=== PATIENT | female | born 1995 | race African-American/Black ===

== ENCOUNTER 2017-12-26 17:37 | Emergency (ER) | payer OTHER ==
[~2017-12-26] VITALS: Ht 172.7 cm; Wt 99.7 kg
[2017-12-26 17:39] VITALS: TEMP 36.7; Ht 172.7 cm; Wt 99.7 kg
[2017-12-26] MEDS ORDERED: ACETAMINOPHEN 500 MG TAB PO STA (17:54)
[2017-12-26] MEDS ORDERED: KETOROLAC TROMETHAMINE 30 MG/ML VIAL IV STA (17:54)
[2017-12-26] MEDS ORDERED: DEXAMETHASONE SOD INJ 4 MG/ML VIAL IV ONE (18:00)
[2017-12-26] MEDS ORDERED: SODIUM CHLORIDE 0.9% 1000ML 1,000 ML IV ONE ×2 (18:00)
[2017-12-26] MEDS ORDERED: CLR10 PO (18:05)
[2017-12-26] MEDS ORDERED: MULT-506 PO (18:05)
[2017-12-26 18:13] LABS: BASO % 0.2 %; BASO ABS # 0.02 K/uL (0-0.2); EOS % 0.2 %; EOS ABS # 0.02 K/uL (0-0.5); HEMATOCRIT 35.1 % (37-47); HEMOGLOBIN 12.3 g/dL (12.0-16.0); IG# 0.03 K/uL (0.00-0.02); LYMPH % 16.5 %; LYMPH ABS # 1.36 K/uL (1.2-3.4); MEAN CELL VOLUME 79.8 fL (80-100); MEAN PLATELET VOLUME 9.9 fL (7.4-10.4); MONO % 7.2 %; MONO ABS # 0.59 K/uL (0.11-0.59); NEUT % 75.5 %; NEUT ABS # 6.22 K/uL (1.4-6.5); PLATELET COUNT 245 K/uL (130-400); RED CELL DISTRIBUTION WIDTH SD 44.4 fL (36.4-46.3); WHITE BLOOD COUNT 8.24 K/uL (4.8-10.8)
[2017-12-26 18:32] LABS: ALBUMIN 4.3 gm/dl (3.4-5.0); CALCIUM 8.8 mg/dl (8.5-10.1); CREATININE 0.83 mg/dl (0.60-1.20); POTASSIUM 3.5 mmol/L (3.5-5.1)
[2017-12-26 18:34] LABS: TOTAL PROTEIN 7.7 gm/dl (6.4-8.2)
[2017-12-26] MEDS ORDERED: CLINDAMYCIN IV 900 MG in DEXTROSE 5% 100ML 100 ML IV ONE (18:45)
--- NOTE | 2017-12-26 18:46 | EMERGENCY ROOM VISIT NOTE ---
History First contact with patient: 18:35 Chief Complaint: THROAT PAIN/INJURY Stated Complaint: SWOLLEN TONSILS, SORE THROATG History of Present Illness The patient is a 22 year old female who presents to the Emergency Room with complaints of severe sore throat for the last 3 days. The patient is having a very difficult time swallowing. She denies any fever or chills. No other symptoms such as headache, sinus congestion or cough. The patient saw [facility] [address]. A strep test was performed and negative. She was not prescribed any medications. Review of Systems 10 system review performed and negative unless noted in HPI or below Past Medical/Surgical History Sickle cell trait Social History Smoking Status: Never Smoker Occupation Status: [employer] student Current/Historical Medications Scheduled Clindamycin Hcl (Cleocin), 300 MG PO QID Multivitamin (Multivitamin), 1 TAB PO DAILY Prednisolone (Prednisolone), 15 ML PO DAILY Scheduled PRN Loratadine (Claritin), 10 MG PO DAILY PRN for Seasonal Allergies Physical Exam Vital Signs Date Time Temp Pulse Resp B/P (MAP) Pulse Ox O2 Delivery O2 Flow Rate FiO2 12/26/17 19:44 98 16 104/64 98 Room Air 12/26/17 18:42 81 18 121/61 100 Room Air 12/26/17 17:48 Room Air 12/26/17 17:39 36.7 99 20 125/64 95 Room Air Physical Exam VITALS: Vitals are noted on the nurse's note and reviewed by myself. Vital signs stable. GENERAL: 22-year-old female, uncomfortable in appearance, mildly acutely ill, i SKIN: The skin was without rashes, erythema, edema, or bruising. HEAD: Normocephalic atraumatic. EYES: Conjunctivae without injection, sclerae without icterus. Extraocular movements intact. MOUTH: Mucous membranes slightly dry. Tonsils are significantly enlarged, erythematous with exudate bilaterally.. Uvula midline. Airway patent. No swelling of the soft palate. No trismus. No hot potato voice. Tongue does not deviate. NECK: Supple without nuchal rigidity. Lymphadenopathy in anterior cervical chain bilaterally. Cervical spine is nontender. No JVD. HEART: Regular rate and rhythm without murmurs gallops or rubs. LUNGS: Clear to auscultation bilaterally without wheezes, rales or rhonchi. No accessory muscle use. ABDOMEN: Positive bowel sounds x 4.Soft, nontender, without organomegaly. No guarding or rebound tenderness. MUSCULOSKELETAL: No muscle atrophy, erythema, or edema noted. Strength 5/5 throughout. NEURO: Patient was alert and oriented to person place and time. Normal sensation to touch. No focal neurological deficits. Medical Decision & Procedures Laboratory Results 12/26/17 17:56 Red Blood Count 4.40, Mean Corpuscular Volume 79.8, Mean Corpuscular Hemoglobin 28.0, Mean Corpuscular Hemoglobin Concent 35.0, Mean Platelet Volume 9.9, Neutrophils (%) (Auto) 75.5, Lymphocytes (%) (Auto) 16.5, Monocytes (%) (Auto) 7.2, Eosinophils (%) (Auto) 0.2, Basophils (%) (Auto) 0.2, Neutrophils # (Auto) 6.22, Lymphocytes # (Auto) 1.36, Monocytes # (Auto) 0.59, Eosinophils # (Auto) 0.02, Basophils # (Auto) 0.02 12/26/17 17:56 Test 12/26/17 17:56 12/26/17 20:25 White Blood Count 8.24 K/uL (4.8-10.8) Red Blood Count 4.40 M/uL (4.2-5.4) Hemoglobin 12.3 g/dL (12.0-16.0) Hematocrit 35.1 % (37-47) Mean Corpuscular Volume 79.8 fL (80-100) Mean Corpuscular Hemoglobin 28.0 pg (25-34) Mean Corpuscular Hemoglobin Concent 35.0 g/dl (32-36) Platelet Count 245 K/uL (130-400) Mean Platelet Volume 9.9 fL (7.4-10.4) Neutrophils (%) (Auto) 75.5 % Lymphocytes (%) (Auto) 16.5 % Monocytes (%) (Auto) 7.2 % Eosinophils (%) (Auto) 0.2 % Basophils (%) (Auto) 0.2 % Neutrophils # (Auto) 6.22 K/uL (1.4-6.5) Lymphocytes # (Auto) 1.36 K/uL (1.2-3.4) Monocytes # (Auto) 0.59 K/uL (0.11-0.59) Eosinophils # (Auto) 0.02 K/uL (0-0.5) Basophils # (Auto) 0.02 K/uL (0-0.2) RDW Standard Deviation 44.4 fL (36.4-46.3) RDW Coefficient of Variation 15.0 % (11.5-14.5) Immature Granulocyte % (Auto) 0.4 % Immature Granulocyte # (Auto) 0.03 K/uL (0.00-0.02) Anion Gap 6.0 mmol/L (3-11) Est Creatinine Clear Calc Drug Dose 133.5 ml/min Estimated GFR () 117.7 Estimated GFR (Non- 101.5 BUN/Creatinine Ratio 9.0 (10-20) Calcium Level 8.8 mg/dl (8.5-10.1) Total Bilirubin 0.7 mg/dl (0.2-1) Aspartate Amino Transf (AST/SGOT) 16 U/L (15-37) Alanine Aminotransferase (ALT/SGPT) 20 U/L (12-78) Alkaline Phosphatase 74 U/L (45-117) Total Protein 7.7 gm/dl (6.4-8.2) Albumin 4.3 gm/dl (3.4-5.0) Globulin 3.4 gm/dl (2.5-4.0) Albumin/Globulin Ratio 1.3 (0.9-2) Monoscreen NEG (NEG) Urine Test NEG (NEG) Medications Administered Medications (Trade) Dose Ordered Sig/Adalgisa Route Start Time Stop Time Status Last Admin Dose Admin Dexamethasone Sodium Phosphate (Decadron Inj) 10 mg NOW ONCE IV 12/26/17 18:00 12/26/17 18:01 DC 12/26/17 18:08 10 MG Ketorolac Tromethamine (Toradol Inj) 30 mg NOW STAT IV 12/26/17 17:54 12/26/17 17:56 DC 12/26/17 18:07 30 MG Acetaminophen (Tylenol Tab) 1,000 mg NOW STAT PO 12/26/17 17:54 18 17:56 DC 12/26/17 18:06 1,000 MG Sodium Chloride 1,000 ml @ 999 mls/hr Q1H1M ONCE IV 12/26/17 18:00 12/26/17 19:00 DC 4/15/18 18:09 999 MLS/HR Sodium Chloride 1,000 ml @ 999 mls/hr Q1H1M ONCE IV 12/26/17 18:00 12/26/17 19:00 DC 12/26/17 18:05 999 MLS/HR Clindamycin Phosphate 900 mg/ Dextrose 106 ml @ 100 mls/hr ONE ONCE IV 12/26/17 18:45 12/26/17 19:48 DC 12/26/17 19:12 100 MLS/HR ED Course Patient was seen and examined Vital signs including blood pressure were reviewed medications list was verified with patient Labs were obtained, and a saline lock was established The patient was medicated with Toradol 30 mg IV and Tylenol 1 g p.o. She was hydrated with 2 L of normal saline. She was given 1 dose of clindamycin 900 mg IV. Upon reevaluation, the patient was feeling slightly better. We discussed the results of her blood work. She voiced understanding. She was comfortable being discharged home I reviewed discharge instructions the patient. They voiced understanding and had no further questions. Medical Decision Differential diagnosis: Bacterial tonsillitis, viral tonsillitis, peritonsillar abscess, airway compromise This patient is a 22-year-old female presents to the emergency department with a severe sore throat. On exam, she has significantly inflamed tonsils with exudate. There are no signs of a peritonsillar abscess. I believe this is likely a bacterial tonsillitis. The patient was aggressively treated in the emergency department with 2 L of fluids, steroids, Toradol, Tylenol and clindamycin. She had some symptomatic relief. I believe she is stable for discharge with close follow-up. She will need to see [facility] [address] tomorrow morning. She understands this plan. She will be sent home with a prescription for steroids and clindamycin. I encouraged her to return immediately to the emergency department with any new or worsening symptoms. This chart was completed in part utilizing [employer] Speech Voice Recognition software. Attempts were made to minimize the grammatical errors, random word insertions, pronoun errors and incomplete sentences. Any formal questions or concerns about the content, text or information contained within the body of this dictation should be directly addressed to the provider for clarification. Impression Primary Impression: Acute bacterial tonsillitis Departure Information Prescriptions Prednisolone (Prednisolone) 15 Mg/5 Ml Syrp 15 ML PO DAILY for 4 Days, #60 ML Prov: Urban, Amira P., PA-C 12/26/17 Clindamycin Hcl (CLEOCIN) 300 Mg Cap 300 MG PO QID for 10 Days, #40 CAP Prov: Amira Burkett PA-C 12/26/17 Referrals [facility] (PCP) Patient Instructions My [facility] Additional Instructions You were treated in the emergency department for bacterial tonsillitis. Please try to stay well-hydrated. You can follow a liquid diet for tonight. Increase fluids such as Gatorade. Ibuprofen 800 mg and/or Tylenol 1000 mg every 8 hours. You may also alternate these medications for more effective pain relief: Ibuprofen --4 HRS--> Tylenol --4 HRS--> ibuprofen --4 HRS--> Tylenol .... Please take the entire course of clindamycin. Please eat yogurt or a probiotic at least once daily while on this medication. Please take the entire course of prednisone It is very important to follow-up with [facility] [address] tomorrow morning for recheck. If you cannot get an appointment with [facility] [address], please return to the emergency department. Please do not hesitate to return to the emergency department sooner for any new or concerning symptoms; especially, difficulty opening your mouth, inability to swallow or shortness of breath School Instructions Return To School: 2 days
[2017-12-26] MEDS ORDERED: CLIN300C2 PO (21:14)
[2017-12-26] MEDS ORDERED: PRED15SY16 PO (21:14)
[2017-12-26 21:35] VITALS: BP 116/65; PULSE 87; O2SAT 98
== END 2017-12-26 21:41 | disposition home or self-care (01) ==
LOC: C.EDB 17:40 → C.EDC 21:41
DX: J03.90 Acute tonsillitis, unspecified (principal)